=== PATIENT | female | born 1960 | race Caucasian/White ===

== ENCOUNTER → 2018-12-21 | Outpatient (CLI) | payer OTHER ==
[~2018-12-21] MED LIST: NEURONTIN 300300 M1 PO; PERCOCET 7.5-31 EACH PO; PROZAC20 MG PO; UNICOMPLEX M TA1 TA1 PO
== END ==
LOC: CAT 08:10
DX: Z01.812 Encounter for preprocedural laboratory examination (principal); J90 Pleural effusion, not elsewhere classified; M47.814 Spondylosis without myelopathy or radiculopathy, thoracic region

== ENCOUNTER → 2018-12-21 | Outpatient (CLI) | payer OTHER | LOC: CAT 08:22 | DX: Z13.6 Encounter for screening for cardiovascular disorders (principal); E78.00 Pure hypercholesterolemia, unspecified; I25.10 Atherosclerotic heart disease of native coronary artery without angina pectoris ==

== ENCOUNTER 2018-12-25 06:24 | Observation (INO) | payer OTHER ==
[~2018-12-25] VITALS: Ht 160 cm; Wt 69.4 kg
[2018-12-25 07:18] LABS: ABSOLUTE NEUTROPHILS 3.7 thou/uL (1.4-8.2); BASOPHILS 0.5 % (0.0-2.0); HEMATOCRIT 36.9 % (37.0-47.0); HEMOGLOBIN 12.2 gm/dL (12.0-15.0); LYMPHOCYTES 18.1 % (24.0-44.0); MCH 29.8 pg (26.0-34.0); MCHC 33.2 g/dL (28.0-37.0); MCV 89.7 fL (80.0-100.0); MONOCYTES 8.1 % (1.0-8.0); PLATELET COUNT 237 thou/uL (150-400); POLYS 72.3 % (36.0-66.0); RBC 4.11 mil/uL (4.20-5.00); RDW 12.4 % (10.5-14.5); WBC 5.1 thou/uL (4.0-11.0)
[2018-12-25 07:31] LABS: APTT 33.6 Seconds (24.5-32.8); PROTIME 10.8 Seconds (9.3-11.4)
[2018-12-25 07:32] LABS: CALCIUM 9.3 mg/dL (8.5-10.1); POTASSIUM 4.1 mmol/L (3.5-5.1)
[2018-12-25 07:36] VITALS: BP 119/55
[2018-12-25 07:37] LABS: ALBUMIN 3.9 g/dL (3.4-5.0); TOTAL BILIRUBIN 0.7 mg/dL (<0.1-1.0); TOTAL PROTEIN 7.3 g/dL (6.4-8.2)
[2018-12-25] MEDS ORDERED: CLONAZEPAM 1 MG1 M1 PO (08:03)
[2018-12-25] MEDS ORDERED: PRINIVIL20 M1 PO (08:03)
[2018-12-25] MEDS ORDERED: CRESTOR20 MG PO (08:04)
--- NOTE | 2018-12-25 08:56 | CATHLAB ---
[facility] [address] [place] [address] INVASIVE PROCEDURE REPORT Name: MACIE AVILA Room #: [facility]#: [id number] Admission: 12/25/18 Attend Phys: Rashaun Rowan, Discharge: Date of : 58 Date of Service: 12/25/18 0856 Report #: [id number] THIS REPORT FOR: //name// APPROVED REPORT Study performed: 12/25/2018 08:20:07 Patient Details Patient Status: Out-Patient Room #: The patient is a 58 year-old female Event Personnel Rashaun Rowan Fur Dry Cleaner Hand, Luis Oquendo RN, Unique Dickson Monitor, Brice Traore Mahmood, Amber Monitor Procedures Performed Art Access - R femoral artery* Left Heart Cath w/or w/o Coronaries [id number] [facility] [address] Initial Mod Sed Same Phys/QHP Gr5y [id number] 23236 Mod Sed Same Phys/QHP Ea 173792 Hemostasis w/ Mynx Indication Chest pain Procedure Narrative The patient was brought electively to the Cardiac Catheterization Laboratory and was prepped and draped in a sterile manner. The Right Groin^ was infiltrated with 1% Lidocaine subcutaneous anesthesia. A PINNACLE 6FR Sheath #[id number] sheath was inserted into the RFA^. Coronary angiography was performed using coronary diagnostic catheters. The right coronary system was accessed and visualized with a JR 4 catheter. The left coronary system was accessed and visualized with a JL 4 catheter. The left ventricle was accessed and visualized with a Pigtail catheter. Left ventricular/Aortic Valve gradient assessed via catheter pullback. Left ventriculogram was performed in ALEXIS projection. Closure device was deployed with a 6 Fr Mynx. The patient tolerated the procedure well and there were no complications associated with the procedure. There was no hematoma. Intraoperative Conscious Sedation Sedation start time: 08:12 Case end Time: 08:38 Fentanyl 50 mcg Versed 1.5 mg Fluoro Time: 1.80 minutes [facility] [place] [address] INVASIVE PROCEDURE REPORT Name: MARGARITAMACIE Room #: [facility]#: [id number] Admission: 12/25/18 Attend Phys: Rashaun Rowan, Discharge: Date of : 58 Date of Service: 12/25/18 0856 Report #: [id number] Dose: DAP 2844.00 cGycm2 369 mGy Contrast Type and Amount: Omnipaque 110 ml Coronary Angiography The patient's coronary anatomy is right dominant. Diagnostic Cath Left Main Normal left main LAD Relatively small coronary arteries, angiographically normal LAD Diagonal 1 Minimal plaquing at the origin of a small first diagonal branch Diagonal 2 Moderate size second diagonal branch, angiographically normal Circumflex Large, nondominant circumflex comprised of a single marginal branch, angiographically normal OM1 Normal first marginal branch Right Coronary Angiographically normal right coronary. R PDA Normal posterior descending RPLV Normal posterior lateral branch Left Ventriculography The left ventricle is normal in size with normal contractility. The left ventricular ejection fraction is estimated to be 60-65%. Left ventricular wall motion abnormalities are not present. There is 1+ mitral insufficiency. Hemodynamics The aortic pressure is 157/68 mmHg with a mean of 99 mmHg. The left ventricular pressure is 158/4 mmHg with a mean of mmHg. The left ventricular end diastolic pressure is 19 mmHg. Conclusion 1. Normal global and regional left ventricular systolic function. Ejection fraction 65%. 2. Normal left main 3. Normal coronary vasculature. Right coronary dominant circulation <ELECTRONICALLY SIGNED> By: Rashaun Rowan MD, FACC 12/25/18855 5 5 Rashaun Rowan MD, FACC /INF
[2018-12-25 13:25] VITALS: BP 135/53
--- NOTE | 2018-12-25 14:16 | EKG ---
[address] [address] ELECTROCARDIOGRAM REPORT Name: MACIE AVILA Room #: [facility]#: [id number] Admission: 12/25/18 Attend Phys: Rashaun Rowan MD, Discharge: Date of : 58 Report #: [id number] THIS REPORT FOR: //name// [facility] Test Date: 2018-12-25 Test Time: 07:30:50 Pat Name: MACIE AVILA Department: Room: [facility] Gender: F Credit Consultant: Lyudmila MONTERO : 1960 Requested By: Rashaun Rowan Order Number: [id number] MD: Danial Bermudez Measurements Intervals [place] Rate: 35 P: 38 MA: 192 QRS: 11 QRSD: 96 T: 48 QT: 537 QTc: 410 Interpretive Statements Sinus bradycardia No previous ECG available for comparison Electronically Signed On 12-25-2018 14:16:33 CDT by Danial Bermudez [email or web address] <ELECTRONICALLY SIGNED> By: Danial Bermudez MD 12/25/18 1416 0730 0730 Danial Bermudez MD /HAL
[2018-12-25 15:03] VITALS: BP 116/80; BP 116/801
--- NOTE | 2018-12-25 17:29 | NUR ---
PT ADMITED FROM CALENDERING SUPERVISOR. ADMISSION HISTORY AND ASSESSMENT COMPLETED. PT ALERT AND ORIENTED. RECEIVED PRN PAIN MED WITH PARTIAL RELIEF. PACEMAKER INCISION C/D/I. NO HEMATOMA NOTED. WILL CONTINUE TO MONITOR.
[2018-12-25 19:24] VITALS: BP 105/55
[2018-12-25 23:46] VITALS: BP 91/55
[2018-12-26 04:21] VITALS: BP 111/62
--- NOTE | 2018-12-26 06:36 | NUR ---
PT A&O X4 ABLE TO MAKE NEEDS KNOWN. C/O OF L PACEMAKER INCISION SITE AT HS ALSO C/O ROTHMAN X1 OVERNITE PAIN EFFECTICVELY CONTROLLED VIA PRN PAIN MEDS. PACEMAKER INCISION SITE OT CDI IMMOBILIZER IN PLACE. PT CALM AND COOPERATIVE
[2018-12-26 07:44] VITALS: BP 130/70
[2018-12-26 11:07] VITALS: BP 130/70
--- NOTE | 2018-12-26 11:24 | NUR ---
ASSESSMENT CHARTED. PT ALERT AND ORIENTED. VSS. RECEIVED PRN PAIN MED WITH PARTIAL RELIEF. PACEMAKER INCISION C/D/I WITH DERMABOND. NO HEMATOMA NOTED. PACEMAKER DISCHRGE INSTRUCTIONS GIVEN TO PT. PT VERBERLISED UNDERSTANDING.
--- NOTE | 2018-12-29 11:39 | D ---
[facility] [place] [address] DISCHARGE SUMMARY Name: MACIE AVILA Room #: [facility] Agnes Amaro#: [id number] Admission: 12/25/18 Attend Phys: Rashaun Rowan MD, Discharge: 12/26/18 Date of : 58 Report #: [id number] THIS REPORT FOR: //name// CC: Rashaun Duran DO [facility] DISCHARGE DIAGNOSES: 1. Symptomatic bradycardia and chronotropic incompetence. 2. Status post dual chamber [employer] pacemaker implantation. 3. Mild coronary disease with normal left ventricular systolic function by angiography. 4. Hypertension. 5. Dyslipidemia. HISTORY OF PRESENT ILLNESS: For the complete details of the history of present illness, see dictated history and physical. Briefly, the patient is a 58-year-old woman who presents with hypertension, dyslipidemia and progressive exertional breathlessness. Her evaluation for this has been extensive including CT angiography of the chest demonstrating no evidence of pulmonary embolism. A treadmill exercise study was notable for severe chronotropic incompetence with peak heart rates of 80s-90s with aggressive levels of exercise. This was associated with symptoms. An outpatient event recorder demonstrated severe sinus bradycardia with associated symptoms. Nuclear stress study was abnormal, leading to coronary angiography and admission. HOSPITAL COURSE: The patient underwent coronary angiography. The full details of this can be found under separate heading and dictation. In summary, left ventricular systolic function was found to be normal. Mild scattered coronary disease, nonocclusive was identified. Medical therapy was recommended. She was seen in consultation by Dr. Bermudez and a dual chamber [employer] pacemaker was placed. Her post-procedural course was uneventful. Her exertional breathlessness resolved following pacemaker implantation. Interrogation of the device demonstrated a normally functioning device. This was an [employer] MRI 2272 pacemaker programmed in the DDD mode with a lower base rate of 60 and a maximum track rate of 130. DISCHARGE MEDICATIONS: Include lisinopril 20 mg daily, rosuvastatin 20 mg daily, fluoxetine 40 mg daily, clonazepam as needed and hydrocodone 5/325, 20 tablets every 6 hours as needed for pain. DISCHARGE FOLLOWUP: With myself in 4-6 weeks. Follow up wound check through the EP clinic. DISCHARGE ACTIVITY: As instructed post-pacemaker implantation. [facility] [address] [place] [address] DISCHARGE SUMMARY Name: MACIE AVILA Room #: [facility] Agnes Amaro#: [id number] Admission: 12/25/18 Attend Phys: Rashaun Rowan MD, Discharge: 12/26/18 Date of : 58 Report #: [id number] DISCHARGE DIET: Heart healthy. Medicines were reconciled. DISCHARGE CONDITION: Stable and improved. <ELECTRONICALLY SIGNED> By: Rashaun Rowan MD, [facility] 12/29/18 1139 0745 08 Rashaun Rowan MD, FACC /nt
--- NOTE | 2019-01-15 15:56 | P ---
[facility] [place] [address] [place] [address] PROCEDURE REPORT Name: MACIE AVILA Room #: [facility]#: [id number] Admission: 12/25/18 Attend Phys: Rashaun Rowan MD, Discharge: 12/26/18 Date of : 58 Report #: [id number] THIS REPORT FOR: //name// [facility]PL[facility]ATION PREOPERATIVE DIAGNOSIS: Sick sinus syndrome. POSTOPERATIVE DIAGNOSIS: Sick sinus syndrome. PROCEDURE PERFORMED: Dual-chamber pacemaker implantation. HISTORY: The patient is a 58-year-old with history of symptomatic bradycardia, here for dual-chamber pacemaker implantation. ANESTHESIA: The patient underwent MAC anesthesia with no anesthesia-related complications. DESCRIPTION OF PROCEDURE: The patient underwent informed consent. We discussed the details of the procedure including the risks, which include but not limited to bleeding, infection, vascular damage, cardiac perforation and pneumothorax. She understood these risks and is willing to proceed. The patient was brought to the laboratory in a fasting and sedated state, prepped and draped in a sterile fashion, underwent venography showing patency of the left axillary vein and received IV antibiotics for antibiotic prophylaxis. Next, lidocaine was injected below the level of the left clavicle. Incision was made, pocket was created over the prepectoral fascia and access was obtained twice to left axillary vein using the extrathoracic approach with sheaths positioned using the modified Seldinger technique. Next, under fluoroscopy, leads were positioned in the right ventricular apex and right atrial appendage, both with adequate pacing and sensing thresholds. Leads were sutured to the prepectoral fascia. The device was connected. Pocket was irrigated with vancomycin and the pocket was closed in 2 layers using 2-0 for the deep layer, 3-0 for the mid layer, surgical glue for the outer layer. The patient awoke neurologically and hemodynamically intact. No complications and no significant bleeding. The implanted pacemaker was a [employer] model #2272, serial #[id number]. The atrial lead was a [employer] model #2088TC, 46 cm, serial #[id number]. The RV lead was [employer] model #2088TC, 52 cm, serial #[id number]. The atrial lead demonstrated a P-wave of 2.6 millivolts, pacing impedance 490 ohms, pacing threshold 0.75 volts at 0.4 milliseconds. RV lead demonstrated R-wave of 9 millivolts, pacing impedance 40 ohms and pacing threshold 0.75 volts at 0.4 milliseconds. The device was programmed to the DDDR 60-130 mode. [facility] [address] [place] [address] PROCEDURE REPORT Name: MACIE AVILA Room #: [facility] Agnes M.R.#: [id number] Admission: 12/25/18 Attend Phys: Rashaun Rowan MD, Discharge: 12/26/18 Date of : 58 Report #: [id number] CONCLUSIONS: 1. Successful dual-chamber pacemaker implantation. 2. Satisfactory atrial and ventricular pacing and sensing thresholds. <ELECTRONICALLY SIGNED> By: Danial Bermudez MD 01/15/19 1556 1557 0518 Danial Bermudez MD /nt
== END 2018-12-26 12:00 | disposition home or self-care (01) ==
LOC: CATH 06:24 → 2N 13:14 → ENTRNSPT 12-26 11:43 → EDTRNSPTSTS 12-26 11:45 → 2N 12-26 12:00
PROVIDERS: ADMIT Internal Medicine
DX: I49.5 Sick sinus syndrome (principal); I10 Essential (primary) hypertension; E78.5 Hyperlipidemia, unspecified; Z79.899 Other long term (current) drug therapy
CPT/HCPCS: 62110; 62900